=== PATIENT | female | born 2000 ===

== ENCOUNTER 2024-06-09 20:55 | Emergency (ER) | payer BC ==
[~2024-06-09] VITALS: Ht 172.7 cm; Wt 121.8 kg
[~2024-06-09 20:55] MED LIST: AJOVY225 MG/1.5 SQ; AMITRIPTYLINE H25 M1 PO; ASTELIN NASAL S34 ML NS; ATARAX 25MG25 MG/TAB PO; BACTRIM DS 8001 TAB PO; BIOTIN2500 MCG PO; BUSPAR10 MG PO; BUSPAR5 MG PO; CLARISPRAY9.9 ML NS; CORTEF 10MG TAB10 MG PO; EC-NAPROSYN500 MG PO; FLOMAX 0.40.4 MG/CAP PO; LEVAQUIN 5500 MG/TA1 PO; MAXALT10 MG; MOTRIN 800800 MG/TAB PO; MULTI VITAMINS1 TAB PO; NORCO 325 MG-51 TAB PO; PHENERGAN 25 TA25 MG PO; PROAIR HFA0.09 MG/AC IH; PROFERRIN ES12 MG PO; QULIPTA10 MG PO; ROBAXIN 75750 MG/TAB PO; SUPER C; VIT D; ZINC; ZOFRAN ODT4 MG PO; ZOLOFT 50MG50 MG PO; ZYRTEC 10MG10 MG PO; [UNRECOGNIZED DRUG - MIXTURE]
[2024-06-09 21:02] VITALS: TEMP 98.5
[2024-06-09 21:52] LABS: COLLECTION METHOD CLEAN CATCH
[2024-06-09 22:02] LABS: PH 5.5 (5.0-8.5); URINE APPEARANCE CLOUDY (CLEAR/HAZY); URINE BLOOD TRACE (NEGATIVE); URINE COLOR ORANGE (YELLOW); URINE GLUCOSE NEGATIVE (NEGATIVE); URINE KETONE NEGATIVE (NEGATIVE); URINE NITRATE POSITIVE (NEGATIVE); URINE PROTEIN(semi-quant) TRACE (NEGATIVE)
[2024-06-09 22:23] LABS: BASO # 0.1 K/mm3 (0.0-0.2); BASO % 0.5 % (0.0-2.0); EOS # 0.1 K/mm3 (0.0-0.7); EOS % 0.9 % (0.0-4.0); GRAN # 5.5 K/mm3 (1.4-6.5); GRAN % 53.4 % (42.2-75.2); HEMATOCRIT 42.3 % (37.0-47.0); HEMOGLOBIN 14.3 g/dl (12.5-16.0); LYMPH # 3.8 K/mm3 (1.2-3.4); LYMPH % 36.7 % (20.0-51.0); MEAN CELL VOLUME 89 fl (80.0-100.0); MEAN CORPUSCULAR HEMOGLOBIN 30 pg (27-31); MEAN CORPUSCULAR HGB CONC 34 g/dl (33.0-37.0); MEAN PLATELET VOLUME 11.2 fl (7.4-10.4); MONO # 0.9 K/mm3 (0.1-0.6); MONO % 8.3 % (1.7-9.3); PLATELET COUNT 287 K/mm3 (130-400); RED BLOOD COUNT 4.77 M/mm3 (4.10-5.30); REDCELL DISTRIBUTION WIDTH-CV 13.1 % (11.5-14.5)
[2024-06-09 22:32] LABS: URINE RBC 20-50 /hpf (0-2)
[2024-06-09 22:33] LABS: MUCOUS PRESENT (NOT PRESENT); SQUAMOUS EPITHELIAL 20-50 /hpf (0-10); URINE BACTERIA MODERATE /hpf (NONE SEEN)
[2024-06-09 22:34] LABS: ALBUMIN 3.8 g/dL (3.5-5.0); BILIRUBIN,TOTAL 0.5 mg/dL (0.2-1.2); CALCIUM 9.4 mg/dL (8.4-10.2); CREATININE, serum 0.77 mg/dL (0.57-1.11); POTASSIUM 3.3 mEq/L (3.5-4.5)
[2024-06-09] MEDS ORDERED: CEFTIN500 MG PO (23:05)
[2024-06-09] MEDS ORDERED: Ketorolac 30 MG/ML VIAL IV ONE (23:15)
[2024-06-09] MEDS ORDERED: cefTRIAXone 1 G in Water For Injection,Sterile 10 ML IV ONE (23:15)
[2024-06-09 23:53] VITALS: BP 120/71; PULSE 95
== END 2024-06-09 23:57 | disposition home or self-care (01) ==
LOC: COL.ER 20:55
PROVIDERS: Nurse Practitioner Primary Care
DX: N39.0 Urinary tract infection, site not specified (principal); Z88.1 Allergy status to other antibiotic agents
CPT/HCPCS: J0696; J1885

== ENCOUNTER 2024-09-22 08:56 | Emergency (ER) | payer BC ==
[~2024-09-22] VITALS: Ht 170.2 cm; Wt 113.6 kg
[~2024-09-22 08:56] MED LIST changes: +CEFTIN500 MG PO
[2024-09-22 09:23] VITALS: TEMP 97.9
[2024-09-22] MEDS ORDERED: fentaNYL 50 MCG/ML 2 ML VIAL IV PRN (09:45)
[2024-09-22] MEDS ORDERED: NS 1,000 ML IV ONE ×2 (09:45→11:45)
[2024-09-22] MEDS ORDERED: Ondansetron 4 MG/2 ML VIAL IV ONE ×2 (09:45→11:45)
[2024-09-22] MEDS ORDERED: Ketorolac 30 MG/ML VIAL IV ONE (09:45)
[2024-09-22 10:15] LABS: BASO % 0.2 % (0.0-2.0); EOS # 0.1 K/mm3 (0.0-0.7); EOS % 0.6 % (0.0-4.0); GRAN # 7.8 K/mm3 (1.4-6.5); GRAN % 76.5 % (42.2-75.2); HEMATOCRIT 46.5 % (37.0-47.0); HEMOGLOBIN 15.6 g/dl (12.5-16.0); LYMPH # 1.6 K/mm3 (1.2-3.4); LYMPH % 15.4 % (20.0-51.0); MEAN CELL VOLUME 91 fl (80.0-100.0); MEAN CORPUSCULAR HEMOGLOBIN 31 pg (27-31); MEAN CORPUSCULAR HGB CONC 34 g/dl (33.0-37.0); MEAN PLATELET VOLUME 11.5 fl (7.4-10.4); MONO # 0.7 K/mm3 (0.1-0.6); MONO % 7.1 % (1.7-9.3); PLATELET COUNT 271 K/mm3 (130-400); RED BLOOD COUNT 5.12 M/mm3 (4.10-5.30); REDCELL DISTRIBUTION WIDTH-CV 12.5 % (11.5-14.5)
[2024-09-22 10:31] LABS: ALBUMIN 3.9 g/dL (3.5-5.0); BILIRUBIN,TOTAL 0.4 mg/dL (0.2-1.2); CALCIUM 9.1 mg/dL (8.4-10.2); CREATININE, serum 0.89 mg/dL (0.57-1.11); POTASSIUM 3.8 mEq/L (3.5-4.5); TOTAL PROTEIN 7.4 g/dl (6.2-8.1)
[2024-09-22] MEDS ORDERED: Iohexol 300 - 100 ML VIAL IV ONE (10:38)
[2024-09-22] MEDS ORDERED: NS 100 ML IV SCH (10:39)
[2024-09-22] MEDS ORDERED: HYDROmorphone 0.5 MG/0.5 ML SYRINGE IV ONE (11:45)
[2024-09-22 12:15] LABS: COLLECTION METHOD CLEAN CATCH
[2024-09-22 12:24] LABS: URINE APPEARANCE CLOUDY (CLEAR/HAZY); URINE BLOOD 3+ (NEGATIVE); URINE COLOR ORANGE (YELLOW); URINE GLUCOSE NEGATIVE (NEGATIVE); URINE KETONE NEGATIVE (NEGATIVE); URINE NITRATE POSITIVE (NEGATIVE); URINE PROTEIN(semi-quant) 1+ (NEGATIVE)
[2024-09-22 12:44] LABS: URINE RBC 20-50 /hpf (0-2)
[2024-09-22 12:45] LABS: URINE BACTERIA MODERATE /hpf (NONE SEEN)
[2024-09-22] MEDS ORDERED: PERCOCET 325 MG1 TA2 PO (13:15)
[2024-09-22] MEDS ORDERED: FLOMAX 0.40.4 MG/CAP PO (13:15)
[2024-09-22] MEDS ORDERED: ZOFRAN ODT4 MG PO (13:15)
[2024-09-22 13:18] VITALS: BP 104/64; PULSE 89
[2024-09-24] MEDS ORDERED: ZEPBOUND12.5 MG/0. SQ (01:34)
[2024-09-24] MEDS ORDERED: DESYREL 50MG50 MG PO (02:14)
[2024-09-24] MEDS ORDERED: XANAX 0.5MG0.5 MG PO (02:15)
[2024-09-24] MEDS ORDERED: CYMBALTA 60MG60 MG PO (02:15)
[2024-09-24] MEDS ORDERED: LOPRESSOR 225 MG/TAB PO (02:16)
[2024-09-24] MEDS ORDERED: ALDACTONE50 MG PO (02:16)
[2024-09-24] MEDS ORDERED: SINGULAIR 110 MG/TAB (02:17)
[2024-09-24] MEDS ORDERED: NASONEX SPRAY17 GM NS (02:18)
[2024-09-24] MEDS ORDERED: FLEXERIL 1010 MG/TAB PO (02:20)
[2024-09-24] MEDS ORDERED: LIPITOR 10MG10 MG PO (02:21)
== END 2024-09-22 13:28 | disposition home or self-care (01) ==
LOC: COL.ER 08:56
PROVIDERS: Personal Emergency Response Attendant
DX: N13.2 Hydronephrosis with renal and ureteral calculous obstruction (principal); Z96.0 Presence of urogenital implants; Z86.16 Personal history of COVID-19; Z86.711 Personal history of pulmonary embolism; Z88.6 Allergy status to analgesic agent
CPT/HCPCS: J1885; J2405; J3010; J7030; Q9967